=== PATIENT | male | born 1990 | race Caucasian/White ===

== ENCOUNTER 2018-06-15 02:12 | Emergency (ER) | payer MEDICAID, SELFPAY ==
[2018-06-15 02:15] VITALS: BP 122/78; PULSE 85; RESP 16; TEMP 36.7; O2SAT 97
--- NOTE | 2018-06-15 02:24 | DI.RAD_ITS ---
SYMPTOM/DIAGNOSIS: TRAUMA RIGHT HAND, RIGHT WRIST: 06/15/18 Four views of the hand and 3 views of the wrist are interpreted in conjunction. There is a fracture of the 5th metacarpal at the level of distal diaphysis with moderate volar and radial angulation of the distal fracture fragment. No additional fracture seen involving the hand or wrist. Carpal alignment appears within normal limits.
--- NOTE | 2018-06-15 02:24 | W.ED.GENAD ---
Discharge Plan Discharge Details Chief Complaint: Orthopedic Clinical Impression: Fracture of fifth metacarpal bone of right hand Primary Care Provider: Cherelle Davis ED Provider: Noel Fontanez Disposition Patient Disposition: HOME Condition: Good Home Meds and New Rx's Prescriptions: New tramadol [Ultram] 50 mg tablet 50 mg PO Q6H PRN (Reason: pain) Qty: 10 RF: 0 Continue ibuprofen 600 MG tablet 600 mg PO Q8H PRNQty: 15 RF: 0 Discharge Instructions Instructions: Tramadol (By mouth), Boxer Fracture (ED) Additional Instructions: Keep hand elevated and splint on. Ice. Use ibuprofen or Tylenol for pain but prescription for tramadol if needed. Will discuss with ortho this morning and have you follow up. Return to ED for worse pain, numbness, discolored finger tips. Referrals: [facility] [Provider Group] Medical Decision Making MDM Narrative Medical decision making narrative: Patient with right hand pain and swelling after having it slammed in door. No abrasions or bruising noted. Swelling and tenderness 4th and 5th MCP area. Complains of wrist pain but no tenderness of swelling. X-rays ordered. X-ray shows a slightly angulated diaphysis fx of the 5th MCP. Otherwise negative. Patient given Toradol IM for pain. Patient placed in ulna gutter splint by me. NVI post splinting. Will refer to ortho for follow up and will discuss with Dr. Flores in the morning. Prescription for Ultram given for pain until follow up with ortho. Patient reviewed in [facility] site and no narcotic prescriptions in the last year. Patient given state infomation sheet and informed consent for opiates signed. HPI - General Adult General Mode of arrival: ambulatory. Date/Time Provider Initiated Documentation: 06/15/18 02:21. Limitations to Documentation: no limitations. Information obtained by: patient. HPI Narrative-FOR DICTATION ONLY HPI Narrative: Patient presents to ED stating he had his hand slammed in a car door. He has pain and swelling of the right hand and wrist. He denies numbness. He has pain trying to make a fist. He has some pain in the wrist. He denies any other injury. He is right hand dominant. Related Data Previous Rx's Medication Instructions Recorded ibuprofen 600 mg PO Q8H PRN #15 tab 05/06/18 tramadol [Ultram] 50 mg PO Q6H PRN #10 tab 06/15/18 Allergies Allergy/AdvReac Type Severity Reaction Status Date / Time amoxicillin Allergy Intermediate Hives Unverified 06/15/18 02:15 Penicillins Allergy Intermediate Hives Unverified 06/15/18 02:15 General Stated Complaint: Orthopedic LANDON: 4 Review of Systems Constitutional Denies headache(s) and Denies weakness ENT Denies headache(s) Cardiovascular Denies chest pain and Denies dyspnea Respiratory Denies dyspnea Gastrointestinal Denies abdominal pain, Denies diarrhea, Denies nausea and Denies vomiting Musculoskeletal Reports deformity, Denies numbness and Reports other (right hand pain/swelling) Integumentary/Breasts Denies wounds Neurologic Denies headache(s), Denies numbness and Denies weakness [facility] Social History Smoking/Tobacco Use Status: Current every day Exam Const General: cooperative, no acute distress and well developed Nutritional Appearance: well nourished Orientation: alert and oriented x3 HENMT Head: normal to inspection, normocephalic and atraumatic Skin Trauma: no lacerations or abrasions Wounds: no wounds Neuro General: alert, oriented x3, gait normal, moves all extremities, no focal motor deficits and CN's II-XI intact bilaterally Extrem Right upper extremity: normal capillary refill, wrist Details: normal to inspection, normal ROM and radial pulse present; no tenderness and no deformity and hand Details: abnormal to inspection Details: a deformity Location: of the entire hand (swelling of the ulna side of hand), neurosensory exam normal, tenderness and abnormal ROM of finger (difficult to make fist due to pain) Course Vital Signs Temperature 98.1 F 06/15/18 02:15 Pulse 85 06/15/18 02:15 Respiratory Rate 16 06/15/18 02:15 Blood Pressure 122/78 06/15/18 02:15 Pulse Oximetry 97 06/15/18 02:15 Temperature 98.1 F 06/15/18 02:15 Pulse 85 06/15/18 02:15 Respiratory Rate 16 06/15/18 02:15 Blood Pressure 122/78 06/15/18 02:15 Pulse Oximetry 97 06/15/18 02:15 Procedures Orthopedic Splinting/Casting Injury #1: Side: right Upper Extremity Injury Location: hand Upper Extremity [facility]
--- NOTE | 2018-06-15 02:39 | ED.GENADUL_ITS ---
Discharge Plan Discharge Details Chief Complaint: Orthopedic Clinical Impression: Fracture of fifth metacarpal bone of right hand Primary Care Provider: Cherelle Davis ED Provider: Noel Fontanez Disposition Patient Disposition: HOME Condition: Good Home Meds and New Rx's Prescriptions: New tramadol [Ultram] 50 mg tablet 50 mg PO Q6H PRN (Reason: pain) Qty: 10 RF: 0 Continue ibuprofen 600 MG tablet 600 mg PO Q8H PRNQty: 15 RF: 0 Discharge Instructions Instructions: Tramadol (By mouth), Boxer Fracture (ED) Additional Instructions: Keep hand elevated and splint on. Ice. Use ibuprofen or Tylenol for pain but prescription for tramadol if needed. Will discuss with ortho this morning and have you follow up. Return to ED for worse pain, numbness, discolored finger tips. Referrals: [facility] [Provider Group] Medical Decision Making MDM Narrative Medical decision making narrative: Patient with right hand pain and swelling after having it slammed in door. No abrasions or bruising noted. Swelling and tenderness 4th and 5th MCP area. Complains of wrist pain but no tenderness of swelling. X-rays ordered. X-ray shows a slightly angulated diaphysis fx of the 5th MCP. Otherwise negative. Patient given Toradol IM for pain. Patient placed in ulna gutter splint by me. NVI post splinting. Will refer to ortho for follow up and will discuss with Dr. Flores in the morning. Prescription for Ultram given for pain until follow up with ortho. Patient reviewed in [facility] site and no narcotic prescriptions in the last year. Patient given state infomation sheet and informed consent for opiates signed. HPI - General Adult General Mode of arrival: ambulatory . Date/Time Provider Initiated Documentation: 06/15/18 02:21 . Limitations to Documentation: no limitations . Information obtained by: patient . HPI Narrative-FOR DICTATION ONLY HPI Narrative: Patient presents to ED stating he had his hand slammed in a car door. He has pain and swelling of the right hand and wrist. He denies numbness. He has pain trying to make a fist. He has some pain in the wrist. He denies any other injury. He is right hand dominant. Related Data Previous Rx's Medication Instructions Recorded ibuprofen 600 mg PO Q8H PRN #15 tab 05/06/18 tramadol [Ultram] 50 mg PO Q6H PRN #10 tab 06/15/18 Allergies Allergy/AdvReac Type Severity Reaction Status Date / Time amoxicillin Allergy Intermediate Hives Unverified 06/15/18 02:15 Penicillins Allergy Intermediate Hives Unverified 06/15/18 02:15 General Stated Complaint: Orthopedic LANDON: 4 Review of Systems Constitutional Denies headache(s) and Denies weakness ENT Denies headache(s) Cardiovascular Denies chest pain and Denies dyspnea Respiratory Denies dyspnea Gastrointestinal Denies abdominal pain, Denies diarrhea, Denies nausea and Denies vomiting Musculoskeletal Reports deformity, Denies numbness and Reports other (right hand pain/swelling) Integumentary/Breasts Denies wounds Neurologic Denies headache(s), Denies numbness and Denies weakness [facility] Social History Smoking/Tobacco Use Status: Current every day Exam Const General: cooperative, no acute distress and well developed Nutritional Appearance: well nourished Orientation: alert and oriented x3 HENMT Head: normal to inspection, normocephalic and atraumatic Skin Trauma: no lacerations or abrasions Wounds: no wounds Neuro General: alert, oriented x3, gait normal, moves all extremities, no focal motor deficits and CN's II-XI intact bilaterally Extrem Right upper extremity: normal capillary refill, wrist Details: normal to inspection, normal ROM and radial pulse present; no tenderness and no deformity and hand Details: abnormal to inspection Details: a deformity Location: of the entire hand (swelling of the ulna side of hand), neurosensory exam normal, tenderness and abnormal ROM of finger (difficult to make fist due to pain) Course Vital Signs Temperature 98.1 F 06/15/18 02:15 Pulse 85 06/15/18 02:15 Respiratory Rate 16 06/15/18 02:15 Blood Pressure 122/78 06/15/18 02:15 Pulse Oximetry 97 06/15/18 02:15 Temperature 98.1 F 06/15/18 02:15 Pulse 85 06/15/18 02:15 Respiratory Rate 16 06/15/18 02:15 Blood Pressure 122/78 06/15/18 02:15 Pulse Oximetry 97 06/15/18 02:15 Procedures Orthopedic Splinting/Casting Injury #1: Side: right Upper Extremity Injury Location: hand Upper Extremity [facility]
--- NOTE | 2018-06-15 02:54 | DI.VRAD_ITS ---
EXAM: XR Right Hand Complete, 3 or More Views CLINICAL HISTORY: 27 years old, male; Pain; Hand; Right; Patient HX: Shut hand in car door, hand and wrist pain TECHNIQUE: Frontal, lateral and oblique views of the right hand. COMPARISON: No relevant prior studies available. FINDINGS: Bones/joints: Slightly angulated fracture of the diaphysis of the fifth metacarpal bone. No dislocation. Soft tissues: Unremarkable. No radiopaque foreign body. IMPRESSION: Fifth metacarpal bone fracture. Dictated and Authenticated by: Avni Miller MD. Ordering:MATTIE RODRIGUEZ MD
--- NOTE | 2018-06-15 02:55 | DI.VRAD_ITS ---
EXAM: XR Right Wrist Complete, 3 or More Views CLINICAL HISTORY: 27 years old, male; Pain; Hand and wrist; Right; Patient HX: Shut hand in car door, hand and wrist pain TECHNIQUE: Frontal, lateral and oblique views of the right wrist. COMPARISON: No relevant prior studies available. FINDINGS: Bones/joints: Fifth metacarpal bone fracture. No dislocation. Soft tissues: Unremarkable. No radiopaque foreign body. IMPRESSION: Fifth metacarpal bone fracture. Dictated and Authenticated by: Avni Miller MD. Ordering:MATTIE RODRIGUEZ MD
[2018-06-15] MEDS: Ketorolac 30 MG/ML VIAL IM (03:09)
[2018-06-15 03:15] VITALS: BP 106/60; PULSE 78; RESP 18; TEMP 37.1; O2SAT 98
== END 2018-06-15 03:52 | disposition home or self-care (01) ==
PROVIDERS: Emergency Provider Emergency Medicine; PCP Family Medicine
DX: S67.41XA Crushing injury of right wrist and hand, initial encounter (principal); S62.336A Displaced fracture of neck of fifth metacarpal bone, right hand, initial encounter for closed fracture; W23.0XXA Caught, crushed, jammed, or pinched between moving objects, initial encounter
CPT/HCPCS: 26600; 96372; 73110; 73130; J1885

== ENCOUNTER 2018-06-16 13:13 | Outpatient (CLI) | payer MEDICAID, SELFPAY ==
--- NOTE | 2018-06-16 13:13 | DI.RAD_ITS ---
SYMPTOMS/DIAGNOSIS: EVALUATE 5TH METACARPAL POSITIONING RIGHT HAND: Three views. Comparison is 06/15/18. There is again seen a fracture of the mid shaft of the right 5th metacarpal. There is volar angulation of the fracture noted. There may be very slight improvement in the degree of volar angulation of the fracture compared to the prior examination. The patient's right hand is in a splint.
== END 2018-06-16 13:33 ==
PROVIDERS: PCP Family Medicine; Visit Provider Student in an Organized Health Care Education/Training Program
DX: S62.336D Displaced fracture of neck of fifth metacarpal bone, right hand, subsequent encounter for fracture with routine healing (principal)
CPT/HCPCS: 73130

== ENCOUNTER 2018-07-07 10:34 | Outpatient (CLI) | payer MEDICAID, SELFPAY ==
--- NOTE | 2018-07-07 10:26 | DI.RAD_ITS ---
SYMPTOM/DIAGNOSIS: RIGHT HAND BOXER FRACTURE RIGHT HAND: Early healing is noted at the site of a fracture of the distal metaphysis of the 5th metacarpal with no change in alignment when compared with the previous images.
== END 2018-07-07 10:54 ==
PROVIDERS: PCP Family Medicine; Visit Provider Physician Assistant
DX: S62.336D Displaced fracture of neck of fifth metacarpal bone, right hand, subsequent encounter for fracture with routine healing (principal)
CPT/HCPCS: 73130

== ENCOUNTER 2018-07-12 00:35 | Emergency (ER) | payer MEDICAID, SELFPAY ==
[2018-07-12 00:42] VITALS: BP 118/90; PULSE 81; RESP 15; TEMP 36.7; O2SAT 98
--- NOTE | 2018-07-12 00:53 | ED.GENADUL_ITS ---
Discharge Plan Disposition Patient Disposition: HOME Condition: Improving Discharge Details Chief Complaint: Nausea/Vomit/Diar Clinical Impression: Abdominal pain, vomiting, and diarrhea, Gastroenteritis Primary Care Provider: Cherelle Davis ED Provider: Micki Cao Home Meds and New Rx's Prescriptions: New famotidine [Pepcid] 20 mg tablet 20 mg PO DAILY Qty: 7 RF: 0 ondansetron [Zofran ODT] 4 mg tablet,disintegrating 4 mg PO TID PRN (Reason: nausea and vomiting) Qty: 6 RF: 0 No Action ibuprofen 800 mg tablet 800 mg PO TID PRN (Reason: pain) Qty: 90 RF: 0 tramadol [Ultram] 50 mg tablet 50 mg PO Q6H PRN (Reason: pain) Qty: 10 RF: 0 ibuprofen 600 MG tablet 600 mg PO Q8H PRNQty: 15 RF: 0 Discharge Instructions Instructions: Gastroenteritis (ED) Additional Instructions: Drink plenty of fluids and get plenty of rest. Take Zofran as needed and directed for nausea and vomiting. Take Pepcid as directed for heartburn or epigastric pain from vomiting. Follow-up with your primary care doctor in 1 week for reevaluation as needed. Return to the emergency department any worsening or new concerning symptoms. Discharge Data Discharge Physician: Micki Cao Medical Decision Making 27-year-old male with no past medical history who presents with vomiting diarrhea and abdominal pain today. Diarrhea mainly watery and brown and vomiting started tonight after eating pizza. Otherwise has been able to eat today. Vitals within normal limits. Patient appears nontoxic and in no acute distress. Speaking in full sentences. Abdomen soft and nontender. Differential diagnosis likely viral gastroenteritis, exacerbated after eating pizza. Patient appears stable, good skin color, no signs of dehydration and no abdominal tenderness so I do not see any acute indication for IV fluids and labs or imaging and patient is agreeable. We will give a dose of Zofran and Pepcid p.o. and reassess. 0200 --patient admitted to relief of nausea after Zofran and was feeling better after Pepcid. He drank some water and then nausea returned. Will give a second tab of Zofran and reassess. 0220 --patient is feeling much better and is requesting to go home. He was taking good sips of water and feels much better. He was instructed to avoid fried or fatty foods and mainly to follow a bland diet of crackers, rice, toast as well as water and azeem karen. We will send home with tabs of Zofran as well as prescriptions for Zofran and Pepcid. He is instructed to follow-up with his primary care doctor for reevaluation and return here if worse. HPI General Mode of arrival: ambulatory . Date/Time Provider Initiated Documentation: 07/12/18 00:44 . Limitations to Documentation: no limitations . Information obtained by: patient . HPI Narrative: Patient is a 27-year-old male with no past medical history who presents with abdominal pain, vomiting and diarrhea today. States his abdominal pain and diarrhea started this morning, approximately 5 times which have been watery and brown. States it lasted diarrhea 10 minutes ago. States his vomiting started tonight after eating a slice of pizza and has vomited 3 times which is mainly been dry heaving and some small amount of fluid. States the abdominal pain is diffuse, crampy and currently 6/10. He otherwise states he had been eating normally today. He denies fever, chest pain, shortness of breath, urinary symptoms, penile discharge, penile lesions, recent travel, recent antibiotics or sick contacts. Past medical history: Negative Surgical history: Negative Social history: Smokes tobacco, occasional beer, daily marijuana Medications: Negative Allergies: Penicillin PCP: Dr. Davis Related Data Home Medications Medication Instructions Recorded Confirmed ibuprofen 600 mg PO Q8H PRN #15 tab 05/06/18 06/16/18 tramadol [Ultram] 50 mg PO Q6H PRN #10 tab 06/15/18 06/16/18 ibuprofen 800 mg tablet 800 mg PO TID PRN #90 tab 06/16/18 06/16/18 famotidine [Pepcid] 20 mg PO DAILY #7 tab 07/12/18 ondansetron [Zofran ODT] 4 mg PO TID PRN #6 tab 07/12/18 Previous Rx's Medication Instructions Recorded ibuprofen 600 mg PO Q8H PRN #15 tab 05/06/18 tramadol [Ultram] 50 mg PO Q6H PRN #10 tab 06/15/18 ibuprofen 800 mg tablet 800 mg PO TID PRN #90 tab 06/16/18 famotidine [Pepcid] 20 mg PO DAILY #7 tab 07/12/18 ondansetron [Zofran ODT] 4 mg PO TID PRN #6 tab 07/12/18 Allergies Allergy/AdvReac Type Severity Reaction Status Date / Time amoxicillin Allergy Intermediate Hives Unverified 07/12/18 00:45 Penicillins Allergy Intermediate Hives Unverified 07/12/18 00:45 General Stated Complaint: Nausea/Vomit/Diar LANDON: 3 Review of Systems Review of Systems All systems reviewed & are unremarkable except as noted in HPI and below PFSH Social History Smoking/Tobacco Use Status: Current every day Exam Const General: cooperative and healthy appearing Orientation: alert and awake HENMT Head: normal to inspection Ears: hearing grossly normal bilaterally and external ears normal General nose exam: external nose normal Face and sinus: normal facial exam Mouth: oral mucosae normal Teeth and gingiva: dentition normal Throat: posterior oropharynx normal Eyes General: appearance normal, both eyes and all related structures Eyelids: eyelids normal Pupils: PERRL EOM: EOM intact bilaterally Neck Neck: normal visual inspection Lymphatic: no lymphadenopathy noted Chest Chest: normal inspection of the chest Resp Effort & Inspection: normal respiratory effort and able to speak in complete sentences Auscultation: clear to auscultation bilaterally Cardio Rate: regular rate Rhythm: regular rhythm GI Inspection: normal to inspection Palpation: soft, not firm, no guarding, no hepatosplenomegaly, no masses and nontender Auscultation: normal bowel sounds Male General Exam: Yes normal external exam Penis: normal penis Scrotum: scrotum normal Back/Spine/Pelvis Back: no CVA tenderness Skin General skin exam: no rashes or lesions noted Neuro General: alert and awake Cognition: normal cognition Speech: speech normal Gait: normal gait Motor: muscle tone normal throughout Sensory Exam: no sensory deficits noted Extrem General: normal to inspection, full ROM and normal capillary refill Psych Appearance: grossly normal Mental Status: mental status grossly normal Speech and Movement: speech and movement normal Affect: normal affect Thought Process: normal Course Vital Signs Temperature 98.1 F 07/12/18 00:42 Pulse 81 07/12/18 00:42 Respiratory Rate 15 07/12/18 00:42 Blood Pressure 118/90 07/12/18 00:42 Pulse Oximetry 98 07/12/18 00:42 Temperature 98.1 F 07/12/18 00:42 Temperature Source Temporal Artery Scan 07/12/18 00:42 Pulse 81 07/12/18 00:42 Respiratory Rate 15 07/12/18 00:42 Respiratory Effort Non-Labored 07/12/18 00:45 Blood Pressure 118/90 07/12/18 00:42 Blood Pressure Position Sitting 07/12/18 00:42 Pulse Oximetry 98 07/12/18 00:42 Oxygen Delivery Method Room Air 07/12/18 00:42 Oxygen Flow Rate 0 07/12/18 00:42 Pain Level 6 07/12/18 00:42
[2018-07-12] MEDS: Ondansetron O.D.T. 4 MG TABEF (00:58)
[2018-07-12] MEDS: Famotidine 20 MG TAB PO (01:10)
[2018-07-12] MEDS: Ondansetron O.D.T. 4 MG TABEF PO ×2 (01:50→02:28)
[2018-07-12 03:06] VITALS: BP 118/90; PULSE 81; RESP 15; TEMP 36.7; O2SAT 98
== END 2018-07-12 02:37 | disposition home or self-care (01) ==
PROVIDERS: Emergency Provider Physician Assistant; PCP Family Medicine
DX: K52.9 Noninfective gastroenteritis and colitis, unspecified (principal); R11.2 Nausea with vomiting, unspecified; R10.84 Generalized abdominal pain
CPT/HCPCS: 99283

== ENCOUNTER 2021-04-26 03:02 | Outpatient (CLI) | payer MEDICAID, SELFPAY ==
--- NOTE | 2021-04-26 | DI.MRI_ITS ---
Exam(s) MR LUMBAR SPINE WO EXAM: MR LUMBAR SPINE WO CLINICAL HISTORY: LOW BACK PAIN, M54.5,RT SCIATICA,M54.31. TECHNIQUE: Multiplanar multisequence MRI of the Lumbar spine was performed. COMPARISON: CR XR hand RT complete from 07/07/2018 FINDINGS: Bones: The last intervertebral disc space is designated the L5/S1 level for the numbering purpose of this examination. The vertebral body heights are well maintained. Alignment is satisfactory. The si gnal characteristics are unremarkable. Cord: The conus tip ends at the T12 level. It is of normal size and signal intensity. T12-L1: No disc herniations or bulges are present. L1-2: No disc herniations or bulges are present. L2-3: No disc herniations or bulges are present. L3-4: No disc herniations or bulges are present. L4-5: Small central disc protrusion without visible nerve root impingement. No significant central canal stenosis or neural foraminal narrowing.. L5-S1: Small central disc protrusion without visible nerve root impingement. No significant central canal stenosis or neural foraminal narrowing.. Soft tissues: The visualized SI joints and sacrum are well maintained. The paraspinal soft tissues ar e unremarkable. IMPRESSION: Small central disc protrusions at L4-5 and L5-S1. No evidence of significant spinal stenosis or neur oforaminal narrowing. DATA REPOSITORY:
== END 2021-04-26 03:22 ==
PROVIDERS: PCP Family Medicine; Visit Provider Family Medicine
DX: M51.17 Intervertebral disc disorders with radiculopathy, lumbosacral region (principal)
CPT/HCPCS: 72148

== ENCOUNTER 2021-10-16 16:09 | Outpatient (REF) | payer MEDICAID, SELFPAY ==
[2021-10-17 13:24] LABS: Appearance Normal; Container Type 50 mL Conical; Grade 2.5 (>=2.5); Motile/Ejaculate 250.6 x10(6) (>=9.0); Motile/mL 71.6 x10(6) (>=6.0); Motility 48 % (>=40); Semen Volume 3.5 mL (>=1.5); Sperm/mL 149.1 x10(6) (>=15.0); Study Type Semen; pH 7.5 (>=7.2)
[2021-10-18 09:31] LABS: Hepatitis B Surface Ag Negative (Negative)
[2021-10-18 10:33] LABS: Hepatitis C Ab w Rflx HCV PCR Negative (Negative)
[2021-10-18 10:37] LABS: HIV-1/2 Ag & Ab Screen Negative (Negative)
[2021-10-18 14:02] LABS: Syphilis Serology (RPR) Negative (Negative)
[2021-10-18 15:42] LABS: Double Forms 0.5 %; Tail Defect 28.5 %
[2021-10-18 15:43] LABS: Chlamydia Result Negative (Negative); GC Result Negative (Negative)
== END 2021-10-16 16:10 | disposition home or self-care (01) ==
LOC: NCHCN 16:09
PROVIDERS: PCP Family Medicine; Visit Provider Family Medicine
DX: Z11.4 Encounter for screening for human immunodeficiency virus [HIV] (principal); Z11.3 Encounter for screening for infections with a predominantly sexual mode of transmission; Z86.19 Personal history of other infectious and parasitic diseases; Z11.59 Encounter for screening for other viral diseases
CPT/HCPCS: 86803; 87340; 87389; 87491; 87591; 86592; 89240; 89310

== ENCOUNTER 2022-06-01 22:50 | Emergency (ER) | payer MEDICAID, SELFPAY ==
--- NOTE | 2022-06-01 23:00 | DI.RAD_ITS ---
Exam(s) XR ANKLE RT COMPLETE EXAM: XR ANKLE RT COMPLETE CLINICAL HISTORY: Injury R/O Fracture. TECHNIQUE: 2D digital imaging was performed of the right ankle. Three images were obtained. AP, la teral and oblique views were obtained. COMPARISON: No exams were available for comparison FINDINGS: BONES: No acute fracture is present. No bony destructive lesion is seen. JOINTS: The ankle mortise is normally aligned. SOFT TISSUE: Mild soft tissue swelling laterally. IMPRESSION: No acute fracture or dislocation. DATA REPOSITORY: RADIATION DOSE DELIVERED:
[2022-06-01 23:05] VITALS: BP 148/92; PULSE 95; RESP 18; TEMP 36.6; O2SAT 98
--- NOTE | 2022-06-01 23:05 | W.ED.GENAD ---
Discharge Plan Disposition Patient Disposition: HOME Condition: Stable Discharge Details Clinical Impression: Right ankle sprain Primary Care Provider: Cherelle Davis ED Provider: Madiha Morse Home Meds and New Rx's Prescriptions: No Action ibuprofen 800 mg tablet 800 mg PO TID PRN (Reason: pain) Qty: 90 0RF valacyclovir [Valtrex] 500 mg tablet 500 mg PO BID PRN Rx Instructions: twice a day for three days as needed clindamycin phosphate 1 % gel 1 applic topical BID Discharge Instructions Instructions: Ankle Sprain (ED) Additional Instructions: Rest, ice, compression, elevation. X-rays show no evidence of broken bones or fracture. Please take Tylenol or Ibuprofen with food every 4-6 hours as needed for pain and swelling. Wear the walking boot as needed for comfort. Follow up with primary care provider in 3-5 days. Return to ED sooner if any worsening or concerns. Increase oral fluids. Referrals: Cherelle Davis MD [Primary Care Provider] - 1 week Medical Decision Making 31-year-old male presents to the ER with a chief complaint of right ankle pain after inversion type injury just approximately 30 minutes prior to arrival. Patient states he had a mechanical fall. X-ray shows no acute fracture. Patient was given a walking boot and crutches. Instructed on RICE procedures and follow-up care. This text was generated using [employer] system, please disregard any oddities of phrase or misspellings. HPI General Mode of arrival: wheelchair. Date/Time Provider Initiated Documentation: 06/01/22 23:03. Limitations to Documentation: no limitations. Information obtained by: patient, RN notes reviewed and old records reviewed. HPI Narrative: 31-year-old male presents to the ER with a chief complaint of right ankle pain after inversion type injury just approximately 30 minutes prior to arrival. Patient states he had a mechanical fall. He did not take any medication prior to arrival. Related Data Home Medications Medication Instructions Recorded Confirmed ibuprofen 800 mg tablet 800 mg PO TID PRN pain #90 tabs 06/16/18 06/01/22 clindamycin phosphate 1 % topical 1 applic topical BID 12/06/21 06/01/22 gel valacyclovir 500 mg tablet 500 mg PO BID PRN 12/06/21 06/01/22 (Valtrex) Previous Rx's Medication Instructions Recorded ibuprofen 800 mg tablet 800 mg PO TID PRN pain #90 tabs 06/16/18 Allergies Allergy/AdvReac Type Severity Reaction Status Date / Time amoxicillin Allergy Intermediate Hives Unverified 06/01/22 23:06 Penicillins Allergy Intermediate Hives Unverified 06/01/22 23:06 General LANDON: 3 Review of Systems All systems reviewed & are unremarkable except as noted in HPI and below Musculoskeletal Musculoskeletal: Reports arthralgias and Reports joint swelling PFSH All Active Problems (Updated 06/01/22 @ 23:41 by Madiha Morse NP) Right ankle sprain (Acute) Boxers fracture (Acute) Medical History Chronic low back pain Genital herpes simplex type 1 infection H/O chlamydia infection 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
[2022-06-01] MEDS: Ibuprofen 800 MG TAB PO (23:11)
--- NOTE | 2022-06-01 23:47 | DI.VRAD_ITS ---
PROCEDURE INFORMATION: Exam: XR Right Ankle Exam date and time: 06/01/2022 11:16 PM Age: 31 years old Clinical indication: Injury or trauma; Sprain or strain; Injury date: 06/01/22; Injury details: Right ankle pain after fall TECHNIQUE: Imaging protocol: Radiologic exam of the Right ankle. Views: 3 or more views. COMPARISON: No relevant prior studies available. FINDINGS: Bones/joints: Ankle joint spacing and alignment are anatomic. Mortise and talar dome are intact. No fracture or dislocation. Soft tissues: Mild lateral ankle soft tissue swelling. No soft tissue gas or radiopaque foreign body. IMPRESSION: No acute fracture. Dictated and Authenticated by: Ezio Barry MD. Ordering:GINI Cleary MD
== END 2022-06-02 00:01 | disposition home or self-care (01) ==
LOC: ER 06-02 00:01
PROVIDERS: Emergency Provider Registered Nurse Emergency; PCP Family Medicine
DX: S93.401A Sprain of unspecified ligament of right ankle, initial encounter (principal); W19.XXXA Unspecified fall, initial encounter; X50.1XXA Overexertion from prolonged static or awkward postures, initial encounter; Z87.891 Personal history of nicotine dependence
CPT/HCPCS: 99283; 73610; 99282

== ENCOUNTER 2023-01-13 02:06 | Outpatient (CLI) | payer MEDICAID, SELFPAY ==
--- NOTE | 2023-01-13 | DI.RAD_ITS ---
Exam(s) XR HIP RT COMPLETE AP PELVIS EXAM: XR HIP RT COMPLETE AP PELVIS INDICATION: CHRONIC RT HIP PAIN, M25.551. COMPARISON: No exams were available for comparison TECHNIQUE: 2D digital imaging was performed. Three views. FINDINGS: Joint spaces are maintained. No periarticular spurring. No soft tissue or joint space calcification s are visible. SI joints and pubic symphysis are unremarkable. The bones are normally mineralized. IMPRESSION: Negative pelvis and right hip. DATA REPOSITORY: RADIATION DOSE DELIVERED:
== END 2023-01-13 02:26 ==
PROVIDERS: PCP Family Medicine; Visit Provider Family Medicine
DX: M25.551 Pain in right hip (principal)
CPT/HCPCS: 73502

== ENCOUNTER 2023-01-30 00:15 | Outpatient (CLI) | payer MEDICAID, SELFPAY ==
--- NOTE | 2023-01-30 | DI.MRI_ITS ---
Exam(s) MR LUMBAR SPINE WO EXAM: MR LUMBAR SPINE WO CLINICAL HISTORY: RT SCIATICA, M54.31. TECHNIQUE: Multiplanar multisequence MRI of the Lumbar spine was performed. COMPARISON: MR MR LUMBAR SPINE WO from 04/26/2021 FINDINGS: Conus medullaris is at normal level. There is no evidence of conus mass nor subjacent clumping of in trathecal nerve roots to suggest arachnoiditis. The distal thecal sac appears unremarkable.There is no evidence of Tarlov intrasacral cysts nor other significant findings within the sacral canal Bones:There are no fractures nor ominous osseous lesions in the lumbar vertebral bodies and visualize d sacrum. With respect to the individual levels... T12-L1: Unremarkable L1-2: Normal disc height and signal. No disc herniation nor central canal stenosis.No foraminal steno sis L2-3: Normal disc height. No disc herniation nor central canal stenosis.No foraminal stenosis.No face t arthropathy. L3-4: Normal disc height. No disc herniation or central canal stenosis.No foraminal stenosis.No face t arthropathy. L4-5: Normal disc height and signal. Posteriorly there is a central subligamentous disc protrusion w hich extends posteriorly 3 millimeters and is approximately 1.7 cm wide. This impresses the anterior thecal sac. Central canal dimensions are lower normal. No extension into the exiting neural forami na. Very minimal change from the prior MRI scan of 04/26/2021. No prominent facet arthropathy. L5-S1: Normal disc height and signal. There is also small central subligamentous disc protrusion at this level which contacts but does not impress the thecal sac, similar to the prior study. No extens ion into the exiting neural foramina which are patent. No foraminal stenosis on either side at this level. Mild degenerative changes in the facet joints. Soft tissues: paraspinal soft tissues appear unremarkable. IMPRESSION: 1. Findings at L4-5 and L5-S1 levels as described above but exhibiting minimal if any significant maine nge when compared to the prior MRI scan of April 2021. DATA REPOSITORY:
== END 2023-01-30 00:35 ==
LOC: DI 00:15
PROVIDERS: PCP Family Medicine; Visit Provider Family Medicine
DX: M54.31 Sciatica, right side (principal)
CPT/HCPCS: 72148

== ENCOUNTER 2024-04-18 22:37 | Emergency (ER) | payer MEDICAID, SELFPAY ==
[2024-04-18 22:52] VITALS: BP 150/74; PULSE 84; RESP 18; TEMP 36.6; O2SAT 96
--- NOTE | 2024-04-18 23:11 | DI.RAD_ITS ---
Exam(s) XR FOOT RT COMPLETE EXAM: XR FOOT RT COMPLETE CLINICAL HISTORY: right foot pain. TECHNIQUE: 2D digital imaging was performed. Three views. COMPARISON: No exams were available for comparison FINDINGS: BONES: No acute fracture is present. No bony destructive lesion is seen. JOINTS: No dislocation present. SOFT TISSUE: Normal. IMPRESSION: Unremarkable radiographs of the right foot. DATA REPOSITORY: RADIATION DOSE DELIVERED:
--- NOTE | 2024-04-18 23:18 | ED.GENADUL_ITS ---
Discharge Plan Disposition Patient Disposition: Home Condition: Stable Discharge Details Clinical Impression: Strain of foot, right Primary Care Provider: Cherelle Davis ED Provider: Heena Kothari Home Meds and New Rx's Prescriptions: Continued valacyclovir [Valtrex] 500 mg tablet 500 mg PO BID PRN Rx Instructions: twice a day for three days as needed Discharge Instructions Instructions: Muscle Strain (DC) Additional Instructions: Take ibuprofen and Tylenol as needed for pain Ice, elevate, rest repeat x-ray in 1 week with persistent pain return earlier should you have new or worsening complaints Referrals: Cherelle Davis MD [Primary Care Provider] - Discharge Data Discharge Date/Time-TO BE ENTERED AT DEPARTURE: 04/18/24 23:28 HPI General Date/Time Provider Initiated Documentation: 04/18/24 22:44 . HPI Narrative: This 33-year-old male presents with injury to right foot patient states he stepped off a porch and twisted his right foot. Denies any additional injuries. Denies strength or sensation change. Related Data Home Medications Medication Instructions Recorded Confirmed valacyclovir 500 mg tablet 500 mg PO BID PRN 12/06/21 04/18/24 (Valtrex) Allergies Allergy/AdvReac Type Severity Reaction Status Date / Time amoxicillin Allergy Intermediate Hives Unverified 04/18/24 22:54 Penicillins Allergy Intermediate Hives Unverified 04/18/24 22:54 General Stated Complaint: Orthopedic LANDON: 4 Exam Narrative Exam Narrative: Right foot tenderness, swelling to lateral foot, neurovascularly intact, DP and PT pulses intact, no tenderness to right ankle or right knee Course Vital Signs Vital signs: Vital Signs Temperature 36.6 C 04/18/24 22:52 Pulse 84 04/18/24 22:52 Respiratory Rate 18 04/18/24 22:52 Blood Pressure 150/74 H 04/18/24 22:52 Pulse Oximetry 96 04/18/24 22:52 Temperature 36.6 C 04/18/24 22:52 Temperature Source Oral 04/18/24 22:52 Pulse 84 04/18/24 22:52 Respiratory Rate 18 04/18/24 22:52 Blood Pressure 150/74 H 04/18/24 22:52 Blood Pressure Position Supine 04/18/24 22:52 Pulse Oximetry 96 04/18/24 22:52 Oxygen Delivery Method Room Air 07/08/24 22:52 Oxygen Flow Rate 0 04/18/24 22:52 Medical Decision Making X-ray was ordered to evaluate patient after right foot injury with swelling. X- ray per my review does not show evidence of acute abnormality, pending virtual radiology overview. Ibuprofen, crutches, ice, boot supplied return precautions reviewed and patient expressed understanding. Patient made aware that we will let him know if there is any discrepancy interpretation. 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
[2024-04-18] MEDS: Ibuprofen 600 MG TAB PO (23:25)
--- NOTE | 2024-04-19 00:20 | DI.VRAD_ITS ---
PROCEDURE INFORMATION: Exam: XR Right Foot Exam date and time: 04/18/2024 11:07 PM Age: 33 years old Clinical indication: Patient HX: Right foot pain TECHNIQUE: Imaging protocol: Radiologic exam of the right foot. Views: 3 or more views. Total images: 3 COMPARISON: CR XR ANKLE RT COMPLETE 06/01/2022 11:16 PM FINDINGS: Bones/joints: No significant bony or joint space abnormality. No fracture. Soft tissues: Unremarkable. IMPRESSION: No acute findings. Dictated and Authenticated by: Kingsley Day MD. Ordering:ROB Naik MD
--- NOTE | 2024-04-25 09:33 | NUR.NOTE ---
Accessed chart to get billing information for [facility]. Nursing Note:
== END 2024-04-18 23:28 | disposition home or self-care (01) ==
PROVIDERS: Emergency Provider Physician Assistant; PCP Family Medicine
DX: S96.911A Strain of unspecified muscle and tendon at ankle and foot level, right foot, initial encounter (principal); X50.1XXA Overexertion from prolonged static or awkward postures, initial encounter; Y93.01 Activity, walking, marching and hiking; Z87.891 Personal history of nicotine dependence
CPT/HCPCS: 99283; 73630